=== PATIENT | male | born 1990 | race Caucasian/White ===

== ENCOUNTER 2021-05-05 13:11 | Outpatient (CLI) | payer BC, MEDICAID ==
--- NOTE | 2021-05-05 13:29 | XRAY Report ---
PROCEDURE: Ribs w/PA Chest RT INDICATIONS: RIB PAIN, RIGHT TECHNIQUE: 3 views of the right ribs were acquired, along with a single view chest. COMPARISON: None FINDINGS: Surgical changes and devices: None. Bones and chest wall: No fractures or dislocations. No suspicious bony lesions. Overlying soft tis sues appear unremarkable. Lungs and pleura: No pleural effusions or pneumothorax. Lungs appear clear. Mediastinum: Mediastinal contours appear normal. Heart size is normal. IMPRESSION: No gross displaced right rib fracture is seen. No suspicious rib lesion. No acute cardiopulmonary pat hology. Reviewed by: Alex Myers MD on 05/05/2021 1:28 PM PDT Approved by: Alex Myers MD on 05/05/2021 1:28 PM PDT Station ID: [id number]
== END 2021-05-05 23:59 | disposition home or self-care (01) ==
LOC: DI.S 13:11
PROVIDERS: ATTEND Physician Assistant Medical
DX: R07.81 Pleurodynia (principal)